=== PATIENT | female | born 1990 | race African-American/Black ===

== ENCOUNTER 2020-03-29 14:23 | Emergency (ER) | payer OTHER ==
[2020-03-29 16:03] LABS: APPEARANCE,URINE CLEAR; BILIRUBIN,URINE NEGATIVE (NEGATIVE); COLOR,URINE YELLOW; GLUCOSE, URINE NEGATIVE (NEGATIVE); KETONES,URINE NEGATIVE (NEGATIVE); LEUKOCYTE ESTERASE,URINE NEGATIVE (NEGATIVE); NITRITE,URINE NEGATIVE (NEGATIVE); PROTEIN,URINE NEGATIVE (NEGATIVE); URINE SPECIFIC GRAVITY 1.023; UROBILINOGEN,URINE NEGATIVE mg/dL (<2.0)
--- NOTE | 2020-03-29 16:10 | ER Document Report ---
ED General - General Chief Complaint: OB Problem (>20wk) Stated Complaint: ABDOMINAL PAIN Time Seen by Provider: 03/29/20 14:25 Notes: [age]-year-old female last period in November known to be with positive (presents with decreased movement for 1 day. 0 care. Lived here for a couple months but cannot afford a visit. Wants to make sure baby is okay. No urinary symptoms. - Related Data Allergies/Adverse Reactions: No Known Allergies Allergy (Verified 03/29/20 15:19) Past Medical History - Social History Smoking Status: Never Smoker Chew tobacco use (# tins/day): No Frequency of alcohol use: None Drug Abuse: None Family History: None Patient has homicidal ideation: No Review of Systems - Review of Systems Notes: REVIEW OF SYSTEMS GEN: Denies fever, chills, weight loss ENT: Denies sore throat, nasal discharge, ear pain EYES: Denies blurry vision, eye pain, discharge CV: Denies chest pain, palpitations, edema RESP: Denies cough, shortness of breath, wheezing GI: Denies abdominal pain, nausea, vomiting, diarrhea MSK: Denies joint pain/swelling, edema, SKIN: Denies rash, skin lesions LYMPH: Denies swollen glands/lymph nodes NEURO: Denies headache, focal weakness or numbness, dizziness PSYCH: Denies depression, suicidal or homicidal ideation PHYSICAL EXAMINATION General: No acute distress, well-nourished Head: Atraumatic, normocephalic ENT: Mouth normal, oropharynx moist, no exudates or tonsillar enlargement Eyes: Conjunctiva normal, pupils equal, lids normal Neck: No JVD, supple, no guarding CVS: Normal rate, regular rhythm, no murmurs Resp: No resp distress, equal and normal breath sounds bilaterally GI: Gravid. Positive movement palpated g Ext: No deformities, no edema, normal range of motion in upper and lower ext Back: No CVA or midline TTP Skin: No rash, warm Lymphatic: No lymphadeopathy noted Neuro: Awake, alert. Face symmetric. GCS 15. Physical Exam - Vital signs Vitals: Temp Pulse Resp BP Pulse Ox 98.0 F 89 20 139/78 H 99 03/29/20 15:07 03/29/20 15:07 03/29/20 15:07 03/29/20 15:07 03/29/20 15:07 Course - Re-evaluation Re-evalutation: 03/29/20 16:09 Surveillance of with no care No signs of miscarriage or other acute issue Intrauterine with heart tonesunknown full health/measurements but 25 weeks by biparietal diameter. Refer to women's health start vitamins I have discussed with the patient there likely diagnosis, aftercare plan, follow- up plans and my usual and customary return precautions. They verbalized understanding of this. - Vital Signs Vital signs: Temp Pulse Resp BP Pulse Ox 98.0 F 89 20 139/78 H 99 03/29/20 15:10 03/29/20 15:07 03/29/20 15:07 03/29/20 15:07 03/29/20 15:07 Procedures - Ultrasound/Bedside Ultrasound/Bedside Ultrasound: Other - Single intrauterine , fetus measuring 25 weeks. Heart tones about 140. Discharge - Discharge Clinical Impression: Qualifiers: Weeks of gestation: 25 weeks Qualified Code(s): Z3A.25 - 25 weeks gestation of Condition: Good Disposition: HOME, SELF-CARE Prescriptions: Pnv No.95/Ferrous Fum/Folic AC [ Tablet] 1 each PO DAILY #90 tablet Referrals: [facility] [Provider Group] - Follow up as needed
[2020-03-29 16:36] VITALS: BP 112/75
== END 2020-03-29 16:31 | disposition home or self-care (01) ==
LOC: ER 14:23
DX: O36.8120 Decreased fetal movements, second trimester, not applicable or unspecified (principal); O09.32 Supervision of pregnancy with insufficient antenatal care, second trimester; Z3A.25 25 weeks gestation of pregnancy
CPT/HCPCS: 81001; 81025; 99284

== ENCOUNTER 2020-07-19 02:32 | Inpatient (IN) | payer MEDICAID ==
[2020-07-19] MEDS ORDERED: OXYTOCIN 10 UNIT/ML VIAL ONE (02:59)
[2020-07-19] MEDS ORDERED: OXYTOCIN/0.9 % SODIUM CHLORIDE 30 UNIT/500 ML RTUINJ ONE (03:00)
[2020-07-19] MEDS ORDERED: MISOPROSTOL 0.2 MG TABLET ONE (03:00)
[2020-07-19] MEDS ORDERED: LIDOCAINE 1% INJ-PF (10 MG/ML) 30 ML SDV ONE (03:00)
[2020-07-19] MEDS ORDERED: RINGERS SOLUTION,LACTATED 1,000 ML IV PRN (03:16)
--- NOTE | 2020-07-19 03:26 | Admission Physical ---
Datetime Report Generated by CPN: 07/19/2020 03:26 CURRENT ADMISSION Chief Complaint: Uterine Contractions Indication for Induction: Not Applicable Admit Impression : Active Labor Admit Plan: Admit to Unit; Initiate Labor Protocol ALLERGIES Medication Allergies: No Known Allergies (03/29/2020) PHYSICAL EXAM General: Normal HEENT: Normal Neurologic: Normal Thyroid: Normal Heart: Normal Lungs: Normal Breast: Normal Back: Normal Abdomen: Normal Genitourinary Exam: Normal Extremities: Normal DTRs: Normal Pelvic Type: Adequate Vital Signs: Reviewed VAGINAL EXAM Dilatation: 10 Effacement: 100 Station: 2 MEMBRANES Pooling: Positive Membranes: Ruptured FETUS A Monitoring: External US FHR- Baseline: 120 Variability: Moderate 6-25bpm Decelerations: None FHR Category: Category I Presentation: Vertex Admit Comment: anticipate delivery INFORMED CONSENT Signature: with User ID: [email or web address]
[2020-07-19] MEDS ORDERED: ACETAMINOPHEN WITH CODEINE #3 TABLET PO PRN ×2 (03:31)
[2020-07-19] MEDS ORDERED: MAGNESIUM HYDROXIDE SUSP 30 ML UDCUP PO PRN (03:31)
[2020-07-19] MEDS ORDERED: NA PHOS,M-B/NA PHOS,DI-BA (ADULT) 133 ML ENEMA PR PRN (03:31)
[2020-07-19] MEDS ORDERED: GLYCERIN/WITCH HAZEL LEAF 1 EACH MED..WIPE TP PRN (03:31)
[2020-07-19] MEDS ORDERED: PROMETHAZINE HCL 25 MG SUPP.RECT PR PRN (03:31)
[2020-07-19] MEDS ORDERED: DIPH/PERTUSS(ACELL)/TETANUS VAC/PF 0.5 ML SYR (>=10YO) IM PRN (03:31)
[2020-07-19] MEDS ORDERED: OXYTOCIN/0.9 % SODIUM CHLORIDE 30 UNIT/500 ML RTUINJ IV PRN (03:31)
[2020-07-19] MEDS ORDERED: ACETAMINOPHEN 650 MG SUPP.RECT PR PRN (03:31)
[2020-07-19] MEDS ORDERED: DIPHENHYDRAMINE HCL 25 MG CAPSULE PO PRN (03:31)
[2020-07-19] MEDS ORDERED: PSEUDOEPHEDRINE HCL 30 MG TABLET PO PRN (03:31)
[2020-07-19] MEDS ORDERED: PROMETHAZINE HCL 25 MG TABLET PO PRN (03:31)
[2020-07-19] MEDS ORDERED: MEASLES,MUMPS&RUBELLA VACC/PF 0.5 ML VIAL SUBCUT PRN (03:31)
[2020-07-19] MEDS ORDERED: DIBUCAINE 1% OINTMENT 28 GM TP PRN (03:31)
[2020-07-19] MEDS ORDERED: BENZOCAINE/MENTHOL AEROSOL SPRAY 56 ML TOP PRN (03:31)
[2020-07-19] MEDS ORDERED: PROMETHAZINE HCL INJ 25 MG/1 ML VIAL IV PRN (03:31)
[2020-07-19] MEDS ORDERED: ZOLPIDEM TARTRATE 5 MG TABLET PO PRN (03:31)
[2020-07-19 03:52] LABS: ABSOLUTE LYMPHOCYTES (AUTO) 2.8 10^3/uL (0.5-4.7); ABSOLUTE MONOCYTES (AUTO) 0.7 10^3/uL (0.1-1.4); ABSOLUTE NEUT (AUTO) 4.4 10^3/uL (1.7-8.2); BASOPHILS % (AUTO) 0.3 % (0-2); EOSINOPHILS % (AUTO) 0.6 % (0-6); HEMATOCRIT 36.9 % (36.0-47.0); HEMOGLOBIN 12.4 g/dL (12.0-15.5); LYMPHOCYTES % (AUTO) 35.3 % (13-45); MEAN CORPUSCULAR HEMOGLOBIN 28.6 pg (27.0-33.4); MEAN CORPUSCULAR HGB CONC 33.5 g/dL (32.0-36.0); MEAN CORPUSCULAR VOLUME 85 fl (80-97); MONOCYTES % (AUTO) 8.4 % (3-13); PLATELET COUNT 178 10^3/uL (150-450); RED BLOOD COUNT 4.32 10^6/uL (3.72-5.28); RED CELL DISTRIBUTION WIDTH 15.4 % (11.5-14.0); SEGMENTED NEUTROPHILS % (AUTO) 55.4 % (42-78); TOTAL CELLS COUNTED % (AUTO) 100 %; WHITE BLOOD COUNT 7.9 10^3/uL (4.0-10.5)
[2020-07-19 05:47] LABS: URINE AMPHETAMINES SCREEN NEGATIVE; URINE BARBITURATES SCREEN NEGATIVE; URINE BENZODIAZEPINES SCREEN NEGATIVE; URINE COCAINE SCREEN NEGATIVE; URINE MARIJUANA (THC) SCREEN NEGATIVE; URINE METHADONE SCREEN NEGATIVE; URINE PHENCYCLIDINE SCREEN NEGATIVE
--- NOTE | 2020-07-19 06:35 | Delivery Summary ---
Del Sum A-C Datetime Report Generated by CPN: 07/19/2020 06:34 DELIVERY PERSONNEL DELIVERY PERSONNEL: [id number] Delivery Doctor:: Amor Simons MD Labor and Delivery Nurse:: Kristin Palacios RNclinical trial associate Nurse:: Hortencia Flynn RN Nursery Nurse:: Laury De La Vega RN Nursery Nurse:: Mami Pelaez RN Handkerchief Maker/LONE LEAD LINEMAN: Jeny Cooney CST Handkerchief Maker/LONE LEAD LINEMAN: Mata Ferrer, GLUER MACHINE OPERATOR MATERNAL INFORMATION Delivery Anesthesia: None Medications After Delivery: Pitocin 30 Units in 500ml NS/D5W Estimated Blood Loss (ml): 250 Delivery QBL: 125 Maternal Complications: Precipitous Labor (<3hrs) LABOR SUMMARY EDC: 07/29/2020 00:00 No. Babies in Womb: 1 Attempted: No Labor Anesthesia: None LABOR INFORMATION Reason for Induction: Not Applicable Onset of Labor: 07/19/2020 00:30 Complete Dilatation: 07/19/2020 03:02 Oxytocin: N/A Group B Beta Strep: Negative Antibiotics # of Doses: 0 Name of Antibiotic Given: n/a Steroids Given: None Reason Steroids Not Administered: Not Applicable MEMBRANES Membranes Rupture Method: Spontaneous Rupture of Membranes: 07/19/2020 03:02 Length of Rupture (hr): 0.10 Amniotic Fluid Color: Clear Amniotic Fluid Amount: Moderate Amniotic Fluid Odor: Normal STAGES OF LABOR Stage 1 hr: 2 Stage 1 min: 32 Stage 2 hr: 0 Stage 2 min: 6 Stage 3 hr: 0 Stage 3 min: 9 Total Time in Labor hr: 2 Total Time in Labor min: 47 VAGINAL DELIVERY Episiotomy: None Laceration #1: None Laceration Extension #1: N/A Laceration #2: None Laceration Extension #2: N/A Laceration #3: None Laceration Extension #3: N/A Laceration Repair: Not Applicable Sponge Count Correct: Vaginal Sweep Performed Sharps Count Correct: Yes BABY A INFORMATION Infant Delivery Date/Time: 07/19/2020 03:08 Method of Delivery: Vaginal Nurse Controlled Delivery: No Born in Route : No : N/A Forceps: N/A Vacuum Extraction: N/A Shoulder Dystocia : No PRESENTATION/POSITION BABY A Presentation: Cephalic Cephalic Presentation: Vertex Vertex Position: Right Occipital Anterior Breech Presentation: N/A PLACENTA INFORMATION BABY A Placenta Delivery Time : 07/19/2020 03:17 Placenta Method of Delivery: Spontaneous Placenta Status: Retained SCORES BABY A Heart Rate 1 min: >100 bpm Resp Effort 1 min: Good Cry Reflex Irritability 1 min: Cough or Sneeze or Pulls Away Muscle Tone 1 min: Active Motion Color 1 min: Blue/Pale Resuscitation Effort 1 min: Tactile Stimulation SCORE 1 MIN: 8 Heart Rate 5 min: >100 bpm Resp Effort 5 min: Good Cry Reflex Irritability 5 min: Cough or Sneeze or Pulls Away Muscle Tone 5 min: Active Motion Color 5 min: Body [place], Extremities Blue Resuscitation Effort 5 min: Tactile Stimulation SCORE 5 MIN: 9 INFANT INFORMATION BABY A Gestational Age at Delivery: 38.4 Gestational Status: Early Term- 37- 38.6 Weeks Infant Outcome : Liveborn Infant Condition : Stable Infant Sex: Male IDENTIFICATION BABY A Verification Date/Time: 07/19/2020 03:25 ID Band Number: [id number] Mother's Name Verified: Yes Infant RN Verifying : Thony Palacios ADRIANNE Additional Verifying Personnel: Perla Leelee, ST WEIGHT/LENGTH BABY A Infant Birthweight (gm): 3024 Infant Weight (lb): 6 Weight (oz): 11 Infant Length (in): 19.50 Length (cm): 49.53 CORD INFORMATION BABY A No. Cord Vessels: 3 Nuchal Cord : N/A Cord Blood Taken: Yes-For Eval (Mom's Blood Type - or O+) Suction: None ASSESSMENT BABY A Infant Complications: None Physical Findings at Delivery: Within Normal Limits Skin to Skin: Yes Transferred To: Remains with Mother BABY B INFORMATION : N/A SIGNATURES Signature: with User ID: [email or web address]
--- NOTE | 2020-07-19 06:35 | Birth Certificate Data ---
Cert Data Datetime Report Generated by CPTam: 07/19/2020 06:34 CERTIFICATE DATA 47a. Care: No (07/19/2020 03:17:Kristin Palacios RN) 47b. Date of First Visit: 06/07/2020 00:00 (07/19/2020 03:17:Kristin Palacios RN) 47c. Date of Last Visit: 07/12/2020 00:00 (07/19/2020 03:17:Kristin Palacios RN) 47d. Number of Visits: 3 (07/19/2020 03:17:Kristin Palacios RN) 48a. Number of Prev Live Births: 2 (07/19/2020 03:17:Kristin Palacios RN) 48b. Now Livin (07/19/2020 03:17:Kristin Palacios RN) 48c. Live Births Now : 0 (07/19/2020 03:17:QS system process) 48e. Losses: 0 (07/19/2020 03:17:Kristin Palacios RN) RISK FACTORS IN THIS 49a. Diabetes: No (07/19/2020 03:17:Kristin Palacios RN) 49b. Hypertension: No (07/19/2020 03:17:Kristin Palacios RN) 49c. Previous Births: 0 (07/19/2020 03:17:Kristin Palacios RN) 49d. Stillborns: No (07/19/2020 03:17:Kristin Palacios RN) 49d. IUGR: No (07/19/2020 03:17:Kristin Palacios RN) 49e. Infertility Treatment: No (07/19/2020 03:17:Kristin Palacios RN) 49f. Previous Cesareans: 0 (07/19/2020 03:17:Kristin Palacios RN) Mother's Height 50b. Height Inches: 65 (07/19/2020 04:19:QS system process) Mother's Weight 51a. Pre- Weight (lbs): 200 (07/19/2020 03:17:Kristin Palacios RN) 51b. Weight at Delivery (lbs): 227 (07/19/2020 04:19:QS system process) Infections Present/Treated 53a. Gonorrhea: No (07/19/2020 03:17:Kristin Palacios RN) Results this Hospital Visit : Unknown (07/19/2020 03:17:Kristin Palacios RN) 53b. Syphilis: No (07/19/2020 03:17:Kristin Palacios RN) 53c. Chlamydia: No (07/19/2020 03:17:Kristin Palacios RN) 53d. Hepatitis B: No (07/19/2020 03:17:Kristin Palacios RN) Results this Hospital Visit: Negative (07/19/2020 03:17:Kristin Palacios RN) 53e. Hepatitis C: Negative (07/19/2020 03:17:Kristin Palacios RN) 53j. Test Result: Negative (07/19/2020 03:17:Kristin Palacios RN) Obstetric Procedures 54a, b, c. Obstetric Procedures: Ultrasound (07/19/2020 03:17:Kristin Palacios RN) Cigarette Smoking 55a. 3 Months Before Preg - Ci (07/19/2020 03:17:Kristin Palacios RN) 55a. Packs: 0 (07/19/2020 03:17:Kristin Palacios RN) 55b. 1st Trimester of Preg- Ci (07/19/2020 03:17:Kristin Palacios RN) 55b. Packs: 0 (07/19/2020 03:17:Kristin Palacios RN) 55c. 2nd Trimester of Preg- Ci (07/19/2020 03:17:Kristin Palacios RN) 55c. Packs: 0 (07/19/2020 03:17:Kristin Palacios RN) 55d. 3rd Trimester of Preg- Ci (07/19/2020 03:17:Kristin Palacios RN) 55d. Packs: 0 (07/19/2020 03:17:Kristin Paalcios RN) Onset of Labor 56a. PROM >12 Hrs: 0.10 (07/19/2020 03:17:QS system process) 56b. Precipitous Labor <3 Hrs: 2 (07/19/2020 03:17:QS system process) 56c. Prolonged Labor > 20 Hrs: 2 (07/19/2020 03:17:QS system process) 57a. Induction of Labor: N/A (07/19/2020 03:17:Kristin Palacios RN) 57c. Non-Vertex Presentation A: Vertex (07/19/2020 03:17:Kristin Palacios RN) 57d. Steroids - Lung Mat: None (07/19/2020 03:17:Amor Simons MD ([facility])) 57d. Steroids - Lung Mat: Not Applicable (07/19/2020 03:17:Amor Simons MD ([facility])) 57g. Moderate/Heavy Meconium: Clear (07/19/2020 03:02:Hortencia Flynn RN) 57i. Epidural/Spinal Anesthesia: None (07/19/2020 03:17:Kristin Palacios RN) Method of Delivery 58a. Forceps - Unsuccessful A: N/A (07/19/2020 03:17:Kristin Palacios RN) 58b. Vacuum - Unsuccessful A: N/A (07/19/2020 03:17:Kristin Palacios RN) 58c. Presentation at 58c. Presentation at - A : Vertex (07/19/2020 03:17:Kristin Palacios RN) 58c. Presentation at - A : N/A (07/19/2020 03:17:Kristin Palacios RN) 58c. Presentation at - A : Cephalic (07/19/2020 03:17:Kristin Palacios RN) Final Route and Method of Del 58d. Baby A Route/Delivery: Vaginal (07/19/2020 03:17:Kristin Palacios RN) 58e. Trial of Labor Attempted: No (07/19/2020 03:17:Kristin Palacios RN) 58e. Trial of Labor Attempted A: N/A (07/19/2020 03:17:Kristin Palacios RN) 58e. Trial of Labor Attempted B: N/A (07/19/2020 03:17:Kristin Palacios RN) Maternal Morbidity 59b. 3rd or 4th Degree Lacs: None (07/19/2020 03:17:Amor Simons MD ([facility])) Birthweight Baby A: 3024 (07/19/2020 03:17:Kristin Palacios RN) 60a. Pounds : 6 (07/19/2020 03:17:QS system process) 60b. Ounces: 11 (07/19/2020 03:17:QS system process) 61. GA at Delivery Baby A: 38.4 (07/19/2020 03:17:Kristin Palacios RN) : Early Term- 37- 38.6 Weeks (07/19/2020 03:17:QS system process) 62a. 5 Minute Baby A: 9 (07/19/2020 03:17:QS system process)
[2020-07-19 07:13] LABS: CHLAM PCR NOT DETECTED (NOT DETECT)
[2020-07-19] MEDS: SENNOSIDES/DOCUSATE 8.6-50 MG 1 EACH TABLET PO SCH (09:57)
[2020-07-19] MEDS: DOCUSATE SODIUM 100 MG CAPSULE PO SCH ×2 (09:57→18:23)
[2020-07-19] MEDS: FERROUS SULFATE 325 MG TABLET PO SCH ×2 (09:57→18:23)
[2020-07-19] MEDS: PRENATAL VITAMIN W DHA CAPSULE PO SCH (09:57)
[2020-07-19] MEDS: FAMOTIDINE 20 MG TABLET PO SCH ×2 (09:58→22:52)
[2020-07-19] MEDS: IBUPROFEN 800 MG TABLET PO SCH ×3 (10:00→21:01)
[2020-07-20] MEDS: IBUPROFEN 800 MG TABLET PO SCH ×2 (06:15→14:50)
[2020-07-20 06:33] LABS: HEMATOCRIT 35.3 % (36.0-47.0); HEMOGLOBIN 11.7 g/dL (12.0-15.5); MEAN CORPUSCULAR HEMOGLOBIN 28.3 pg (27.0-33.4); MEAN CORPUSCULAR HGB CONC 33.1 g/dL (32.0-36.0); MEAN CORPUSCULAR VOLUME 85 fl (80-97); PLATELET COUNT 164 10^3/uL (150-450); RED BLOOD COUNT 4.14 10^6/uL (3.72-5.28); RED CELL DISTRIBUTION WIDTH 15.6 % (11.5-14.0); WHITE BLOOD COUNT 9.5 10^3/uL (4.0-10.5)
[2020-07-20] MEDS: FERROUS SULFATE 325 MG TABLET PO SCH ×2 (09:30→17:07)
[2020-07-20] MEDS: DOCUSATE SODIUM 100 MG CAPSULE PO SCH ×2 (09:30→17:07)
[2020-07-20] MEDS: FAMOTIDINE 20 MG TABLET PO SCH (09:30)
[2020-07-20] MEDS: PRENATAL VITAMIN W DHA CAPSULE PO SCH (09:30)
[2020-07-20] MEDS: SENNOSIDES/DOCUSATE 8.6-50 MG 1 EACH TABLET PO SCH (09:30)
--- NOTE | 2020-07-20 11:42 | PDOC PROGRESS REPORT ---
Subjective-OB Progress Note for:: 07/20/20 Subjective: Pt reports light bleeding, reg diet and voiding well. Wants to go home today. Discussed with Peds. Physical Exam (OB) Vital Signs: Temp Pulse Resp BP Pulse Ox 98.1 F 87 16 120/75 99 07/20/20 10:00 07/20/20 00:56 07/20/20 00:56 07/20/20 00:56 07/20/20 00:56 Intake & Output 07/19/20 07/20/20 07/21/20 06:59 06:59 06:59 Weight 103.419 kg - PIH/Pre-Eclampsia DTR's: 1 + Clonus: Negative Headache: Absent Epigastric Pain: No Visual Changes: No - Maternal Morbidity 59. Maternal Morbidity (serious complications experinced by the mother associated with labor and delivery: None of the above - Lochia Lochia Amount: Small 10-25 ml Lochia Color: Rubra/Red - Abdomen Description: Soft, Round Hernia Present: No Fundal Description: Firm, Midline Fundal Height: u/u - u/2 Objective-Diagnostic Laboratory: 07/20/20 06:11 07/20/20 06:11 WBC 9.5 RBC 4.14 Hgb 11.7 L Hct 35.3 L MCV 85 MCH 28.3 MCHC 33.1 RDW 15.6 H Plt Count 164 Assessment and Plan(PN) - Assessment and Plan (1) Late care affecting Qualifiers: Trimester: unspecified trimester Qualified Code(s): O09.30 - Supervision of with insufficient care, unspecified trimester Is this a current diagnosis for this admission?: Yes (2) Precipitate labor, delivered, current hospitalization Is this a current diagnosis for this admission?: Yes (3) Precipitous delivery Is this a current diagnosis for this admission?: Yes - Time Spent with Patient Time with patient: Less than 15 minutes Medications reviewed and adjusted accordingly: Yes - Disposition Anticipated Discharge Disposition: Home, Self Care Anticipated Discharge Timeframe: within 24 hours
--- NOTE | 2020-07-20 11:45 | PDOC DISCHARGE SUMMARY ---
Impression - Admit/DC Date/PCP Admission Date/Primary Care Provider: 07/19/20 03:03 Discharge Date: 07/20/20 - Discharge Diagnosis (1) Late care affecting Is this a current diagnosis for this admission?: Yes (2) Precipitate labor, delivered, current hospitalization Is this a current diagnosis for this admission?: Yes (3) Precipitous delivery Is this a current diagnosis for this admission?: Yes - Additional Information Resuscitation Status: Full Code Discharge Diet: Regular Discharge Activity: Balance Activity w/Rest, Pelvic Rest Home Medications: Ibuprofen [Motrin 800 mg Tablet] 800 mg PO Q8 #0 tablet 07/20/20 Vit/Dha [ Multi + Dha Capsule] 1 cap PO DAILY capsule 07/20/20 HPI Gestational Age: 38.4 Reason(s) for Admission: Onset of Labor Procedures: NST Intrapartum Procedure(s): Spontaneous Vaginal Delivery Hospital Course 59. Maternal Morbidity (serious complications experinced by the mother associated with labor and delivery: None of the above Results Laboratory Results: WBC 9.5 10^3/uL (4.0-10.5) 07/20/20 06:11 RBC 4.14 10^6/uL (3.72-5.28) 07/20/20 06:11 Hgb 11.7 g/dL (12.0-15.5) L 07/20/20 06:11 Hct 35.3 % (36.0-47.0) L 07/20/20 06:11 MCV 85 fl (80-97) 07/20/20 06:11 MCH 28.3 pg (27.0-33.4) 07/20/20 06:11 MCHC 33.1 g/dL (32.0-36.0) 07/20/20 06:11 RDW 15.6 % (11.5-14.0) H 07/20/20 06:11 Plt Count 164 10^3/uL (150-450) 07/20/20 06:11 Lymph % (Auto) 35.3 % (13-45) 07/19/20 03:34 [place] % (Auto) 8.4 % (3-13) 07/19/20 03:34 Eos % (Auto) 0.6 % (0-6) 07/19/20 03:34 Baso % (Auto) 0.3 % (0-2) 07/19/20 03:34 Absolute Neuts (auto) 4.4 10^3/uL (1.7-8.2) 07/19/20 03:34 Absolute Lymphs (auto) 2.8 10^3/uL (0.5-4.7) 07/19/20 03:34 Absolute Monos (auto) 0.7 10^3/uL (0.1-1.4) 07/19/20 03:34 Absolute Eos (auto) 0.0 10^3/uL (0.0-0.6) 07/19/20 03:34 Absolute Basos (auto) 0.0 10^3/uL (0.0-0.2) 07/19/20 03:34 Seg Neutrophils % 55.4 % (42-78) 07/19/20 03:34 Urine Opiates Screen NEGATIVE 07/19/20 02:50 Urine Methadone Screen NEGATIVE 07/19/20 02:50 Ur Barbiturates Screen NEGATIVE 07/19/20 02:50 Ur Phencyclidine Scrn NEGATIVE 07/19/20 02:50 Ur Amphetamines Screen NEGATIVE 07/19/20 02:50 U Benzodiazepines Scrn NEGATIVE 07/19/20 02:50 Urine Cocaine Screen NEGATIVE 07/19/20 02:50 U Marijuana (THC) Screen NEGATIVE 07/19/20 02:50 RPR NONREACTIVE (NONREACTIVE) 07/19/20 03:34 Chlamydia DNA (PCR) NOT DETECTED (NOT DETECT) 07/19/20 02:50 N.gonorrhoeae DNA (PCR) NOT DETECTED (NOT DETECT) 07/19/20 02:50 Blood Type O POSITIVE 07/19/20 03:34 Antibody Screen NEGATIVE 07/19/20 03:34 Plan Plan of Treatment: f/u at [facility] 4 wks Time Spent: Less than 30 Minutes
[2020-07-20 16:01] VITALS: BP 139/74
== END 2020-07-20 18:55 | disposition home or self-care (01) | DRG 807 ==
LOC: LC 02:32 → LR 03:03 → 2S 09:21
PROVIDERS: ADMIT Obstetrics & Gynecology; ATTEND Obstetrics & Gynecology
PROC: 10E0XZZ Delivery of Products of Conception, External Approach (ICD-10-PCS; principal; 2020-07-19)
DX: O62.3 Precipitate labor (principal); Z37.0 Single live birth; Z11.59 Encounter for screening for other viral diseases; Z3A.38 38 weeks gestation of pregnancy
CPT/HCPCS: 36415; 80307; 85025; 85027; 86592; 86850; 86900; 86901; 87491; 87591; J2590; J3490